=== PATIENT | female | born 1990 | race Two or more races ===

== ENCOUNTER 2019-01-03 06:07 | Emergency (ER) | payer MEDICAID ==
[~2019-01-03] VITALS: Ht 160 cm; Wt 94.3 kg
[2019-01-03 06:13] VITALS: Ht 160 cm; Wt 94.3 kg
[2019-01-03 09:31] VITALS: BP 101/50
== END 2019-01-03 09:31 | disposition home or self-care (01) ==
LOC: ED 06:07
DX: J06.9 Acute upper respiratory infection, unspecified (principal); Z90.49 Acquired absence of other specified parts of digestive tract

== ENCOUNTER 2019-02-14 13:44 | Emergency (ER) | payer MEDICAID ==
[~2019-02-14] VITALS: Ht 160 cm; Wt 97.1 kg
[2019-02-14 13:55] VITALS: Ht 160 cm; Wt 97.1 kg
[2019-02-14 16:11] VITALS: BP 108/54
== END 2019-02-14 16:11 | disposition home or self-care (01) ==
LOC: ED 13:44
DX: B34.9 Viral infection, unspecified (principal); K08.89 Other specified disorders of teeth and supporting structures
CPT/HCPCS: 87804; J1885